=== PATIENT | female | born 1985 | race Caucasian/White ===

== ENCOUNTER → 2021-06-24 09:14 | Outpatient (BNVA) | payer OTHER, SELFPAY | PROVIDERS: Visit Provider Orthopaedic Surgery | DX: M79.602 Pain in left arm (principal); R20.0 Anesthesia of skin | CPT/HCPCS: 72110; 72170; 73030; 73060; 73502 ==

== ENCOUNTER → 2021-09-06 07:58 | Outpatient (BNVA) | payer OTHER, SELFPAY | PROVIDERS: PCP Family Medicine; Referring Provider Orthopaedic Surgery; Visit Provider Specialist | DX: M79.602 Pain in left arm (principal); R20.0 Anesthesia of skin; F17.200 Nicotine dependence, unspecified, uncomplicated | CPT/HCPCS: 95886; 95910; 99202 ==

== ENCOUNTER 2021-09-29 12:52 | Outpatient (CLI) | payer OTHER, SELFPAY ==
--- NOTE | 2021-09-29 12:55 | CT_ITS ---
WS: [id number] CT PELVIS WITHOUT CONTRAST. HISTORY: R52 - Pain, unspecified TECHNIQUE: Contiguous imaging is performed of the pelvis without contrast. Coronal and sagittal refor mats are reviewed. All CT scans at [facility] use at least one of these dose optimization dru hniques: automated exposure control; mA and/or kV adjustment per patient size (includes targeted exam s where dose is matched to clinical indication); or iterative reconstruction. DLP: 882.59 mGycm COMPARISON: RIGHT hip and pelvis radiograph 06/24/2021 Patient is status post long screw fixation across the sacrum. Single long screw extends through both SI joints. A shorter screw extends only through the LEFT SI joint. The hardware is intact. No acute f racture. Prior fracture is noted through the LEFT sacrum. Intramedullary ellie LEFT femur with screw fixation through the femoral neck. No change in position of the hardware since the prior examination. No acute fractures are identified. Remote healed rib fractu res involving the pubic rami. No free fluid. Uterus is normal size and anteverted. CT/CT pelvis wo con [id number] IMPRESSION: 1. Hardware fixation through the sacrum and LEFT hip is intact as visualized. No change or acute fracture identified. 2. Remote healed fractures of the sacrum, LEFT hip and pubic rami.
== END 2021-09-29 12:53 | disposition home or self-care (01) ==
PROVIDERS: PCP Family Medicine; Visit Provider Orthopaedic Surgery
DX: R52 Pain, unspecified (principal)
CPT/HCPCS: 72192